=== PATIENT | female | born 1955 | race Two or more races ===

== ENCOUNTER 2020-11-22 06:17 | Day surgery (SDC) | payer MEDICARE, OTHER ==
[~2020-11-22] VITALS: Ht 157.5 cm; Wt 123.8 kg
[2020-11-22] MEDS ORDERED: MIDAZOLAM 5 MG/5 ML VIAL ONE (07:29)
[2020-11-22] MEDS ORDERED: fentaNYL citrate 0.05 MG/ML VIAL ONE (07:29)
[2020-11-22] MEDS ORDERED: MIDAZOLAM 2 MG/2 ML VIAL IVP ONE (08:15)
== END 2020-11-22 09:05 | disposition home or self-care (01) ==
LOC: MDS 06:17 → MFCC 06:20 → MDS 09:05
PROVIDERS: ATTEND Internal Medicine Gastroenterology
DX: K22.8 Other specified diseases of esophagus (principal); I10 Essential (primary) hypertension; J45.909 Unspecified asthma, uncomplicated; E78.5 Hyperlipidemia, unspecified; K29.70 Gastritis, unspecified, without bleeding; E66.01 Morbid (severe) obesity due to excess calories; Z68.42 Body mass index [BMI] 45.0-49.9, adult; Z79.82 Long term (current) use of aspirin; Z79.899 Other long term (current) drug therapy; Z20.822 Contact with and (suspected) exposure to COVID-19
CPT/HCPCS: 36415; 43239; 86677; J2250; J3010